=== PATIENT | female | born 1965 | race Two or more races ===

== ENCOUNTER 2017-07-10 23:51 | Emergency (ER) | payer BC ==
[2017-07-11] MEDS ORDERED: RX INFO: IV CONTRAST WAS GIVEN 1 EACH MISC MISCELLANE PRN (00:17)
--- NOTE | 2017-07-11 00:20 | ED ---
General Adult HPI - General Chief complaint: Shortness of Breath Stated complaint: DELLA Time Seen by Provider: 07/11/17 00:07 Source: patient, RN notes reviewed Mode of arrival: wheelchair Limitations: no limitations - History of Present Illness Initial comments: 52-year-old female presents with sudden onset dyspnea. Patient was laying in bed, she states that all of a sudden she cannot take a deep breath. She stood and had some improvement although did persist. At this time she did have some epigastric pain which she attributed to reflux. She has no known history of coronary artery disease. No history of DVT or PE. Denies any lower extremity pain or swelling. Denies any preceding symptoms, no fever chills, no cough. Patient's symptoms are nearly resolved at the time my evaluation, she does complain of some mild dizziness. No chest pain or dyspnea currently. Patient has remote history of tobacco use, quit many years ago. - Related Data Allergies Allergy/AdvReac Type Severity Reaction Status Date / Time sulfamethoxazole Allergy Rash/Hives Verified 07/10/17 23:59 [From Bactrim] trimethoprim [From Bactrim] Allergy Rash/Hives Verified 07/10/17 23:59 Review of Systems ROS Statement: Those systems with pertinent positive or pertinent negative responses have been documented in the HPI. ROS Other: All systems not noted in ROS Statement are negative. Past Medical History Past Medical History: No Reported History History of Any Multi-Drug Resistant Organisms: None Reported Past Surgical History: Uterine Ablation Past Psychological History: No Psychological Hx Reported Smoking Status: Former smoker Past Alcohol Use History: Occasional Past Drug Use History: None Reported General Exam Limitations: no limitations General appearance: alert, in no apparent distress Head exam: Present: atraumatic, normocephalic Eye exam: Present: normal appearance, PERRL, EOMI ENT exam: Present: normal exam Neck exam: Present: normal inspection. Absent: tenderness, meningismus Respiratory exam: Present: normal lung sounds bilaterally. Absent: respiratory distress, wheezes Cardiovascular Exam: Present: regular rate, normal rhythm GI/Abdominal exam: Present: soft. Absent: distended, tenderness Extremities exam: Present: normal inspection, normal capillary refill. Absent: pedal edema Back exam: Present: normal inspection, full ROM Neurological exam: Present: alert, oriented X3, CN II-XII intact. Absent: motor sensory deficit Psychiatric exam: Present: normal affect, normal mood. Absent: anxious Skin exam: Present: warm, dry, intact. Absent: cyanosis, diaphoretic Course Vital Signs 07/10/17 23:55 Temperature 97.5 F L Pulse Rate 90 Respiratory 16 Rate Blood Pressure 154/80 O2 Sat by Pulse 100 Oximetry EKG Findings - EKG Comments: EKG Findings:: EKG normal sinus rhythm, ventricular rate 90 AL interval 146, QRS duration 76, QTC 435, no definitive signs of ischemia, no ST segment elevation Medical Decision Making - Medical Decision Making 52-year-old female presenting with sudden onset dyspnea and epigastric pain. Symptoms are resolving at the time my evaluation. EKG is no definitive signs of ischemia. There is concern for pulmonary embolism given the sudden onset of her symptoms, CT angiography is obtained this is negative for PE. Chest x-ray negative for focal pneumonia or pneumothorax. No acute findings. CBC within normal limits, electrolytes normal, initial troponin is negative. Patient does have family history of coronary artery disease, she has significant tobacco exposure. She will be placed in observation for serial cardiac enzymes. Chest pain rule out. - Lab Data Result diagrams: 07/11/17 00:20 07/11/17 00:20 Lab Results 07/11/17 07/11/17 07/11/17 Range/Units 00:20 00:20 00:20 WBC 6.2 (3.8-10.6) k/uL RBC 4.65 (3.80-5.40) m/uL Hgb 14.1 (11.4-16.0) gm/dL Hct 41.0 (34.0-46.0) % MCV 88.3 (80.0-100.0) fL MCH 30.4 (25.0-35.0) pg MCHC 34.4 (31.0-37.0) g/dL RDW 12.2 (11.5-15.5) % Plt Count 287 (150-450) k/uL Neutrophils % 43 % Lymphocytes % 46 % Monocytes % 6 % Eosinophils % 3 % Basophils % 1 % Neutrophils # 2.6 (1.3-7.7) k/uL Lymphocytes # 2.8 (1.0-4.8) k/uL Monocytes # 0.4 (0-1.0) k/uL Eosinophils # 0.2 (0-0.7) k/uL Basophils # 0.0 (0-0.2) k/uL PT (9.0-12.0) sec INR (<1.2) APTT (22.0-30.0) sec Sodium 143 (137-145) mmol/L Potassium 4.2 (3.5-5.1) mmol/L Chloride 104 (98-107) mmol/L Carbon Dioxide 28 (22-30) mmol/L Anion Gap 11 mmol/L BUN 20 H (7-17) mg/dL Creatinine 0.70 (0.52-1.04) mg/dL Est GFR (CKD-EPI)AfAm >90 (>60 ml/min/1.73 sqM) Est GFR (CKD-EPI)NonAf >90 (>60 ml/min/1.73 sqM) Glucose 92 (74-99) mg/dL Calcium 10.0 (8.4-10.2) mg/dL Magnesium 2.0 (1.6-2.3) mg/dL Total Bilirubin 0.3 (0.2-1.3) mg/dL AST 24 (14-36) U/L ALT 22 (9-52) U/L Alkaline Phosphatase 59 (38-126) U/L Total Creatine Kinase 46 (30-135) U/L CK-MB (CK-2) 0.4 (0.0-2.4) ng/mL CK-MB (CK-2) Rel Index 0.9 Troponin I <0.012 (0.000-0.034) ng/mL NT-Pro-B Natriuret Pep pg/mL Total Protein 7.3 (6.3-8.2) g/dL Albumin 4.5 (3.5-5.0) g/dL Lipase 197 (23-300) U/L 07/11/17 07/11/17 Range/Units 00:20 00:20 WBC (3.8-10.6) k/uL RBC (3.80-5.40) m/uL Hgb (11.4-16.0) gm/dL Hct (34.0-46.0) % MCV (80.0-100.0) fL MCH (25.0-35.0) pg MCHC (31.0-37.0) g/dL RDW (11.5-15.5) % Plt Count (150-450) k/uL Neutrophils % % Lymphocytes % % Monocytes % % Eosinophils % % Basophils % % Neutrophils # (1.3-7.7) k/uL Lymphocytes # (1.0-4.8) k/uL Monocytes # (0-1.0) k/uL Eosinophils # (0-0.7) k/uL Basophils # (0-0.2) k/uL PT 9.6 (9.0-12.0) sec INR 1.0 (<1.2) APTT 23.3 (22.0-30.0) sec Sodium (137-145) mmol/L Potassium (3.5-5.1) mmol/L Chloride (98-107) mmol/L Carbon Dioxide (22-30) mmol/L Anion Gap mmol/L BUN (7-17) mg/dL Creatinine (0.52-1.04) mg/dL Est GFR (CKD-EPI)AfAm (>60 ml/min/1.73 sqM) Est GFR (CKD-EPI)NonAf (>60 ml/min/1.73 sqM) Glucose (74-99) mg/dL Calcium (8.4-10.2) mg/dL Magnesium (1.6-2.3) mg/dL Total Bilirubin (0.2-1.3) mg/dL AST (14-36) U/L ALT (9-52) U/L Alkaline Phosphatase (38-126) U/L Total Creatine Kinase (30-135) U/L CK-MB (CK-2) (0.0-2.4) ng/mL CK-MB (CK-2) Rel Index Troponin I (0.000-0.034) ng/mL NT-Pro-B Natriuret Pep 75 pg/mL Total Protein (6.3-8.2) g/dL Albumin (3.5-5.0) g/dL Lipase (23-300) U/L Disposition Clinical Impression: Chest pain Disposition: ADMITTED IP TO THIS [facility] Condition: Stable Referrals: None,Stated [Primary Care Provider] - 1-2 days Decision to Admit Reason: Admit from EC Decision Date: 07/11/17 Decision Time: 01:41
[2017-07-11 00:37] LABS: Basophils % (A) 1 %; Eosinophils # (A) 0.2 k/uL (0-0.7); Eosinophils % (A) 3 %; HGB 14.1 gm/dL (11.4-16.0); Lymphocytes # (A) 2.8 k/uL (1.0-4.8); Lymphocytes % (A) 46 %; MCH 30.4 pg (25.0-35.0); MCHC 34.4 g/dL (31.0-37.0); MCV 88.3 fL (80.0-100.0); Mean Platelet Volume 6.4; Monocytes # (A) 0.4 k/uL (0-1.0); Monocytes % (A) 6 %; Neutrophils # (A) 2.6 k/uL (1.3-7.7); Neutrophils % (A) 43 %; Platelet Count 287 k/uL (150-450); RBC 4.65 m/uL (3.80-5.40); RDW 12.2 % (11.5-15.5); WBC 6.2 k/uL (3.8-10.6)
[2017-07-11 00:45] LABS: Partial Thromboplastin Time 23.3 sec (22.0-30.0); Prothrombin Time 9.6 sec (9.0-12.0)
[2017-07-11 00:46] LABS: ALT 22 U/L (9-52); AST 24 U/L (14-36); Albumin 4.5 g/dL (3.5-5.0); Alkaline Phosphatase 59 U/L (38-126); Anion Gap 11 mmol/L; Blood Urea Nitrogen 20 mg/dL (7-17); Carbon Dioxide 28 mmol/L (22-30); Chloride 104 mmol/L (98-107); Glucose 92 mg/dL (74-99); Lipase 197 U/L (23-300); Potassium 4.2 mmol/L (3.5-5.1); Sodium 143 mmol/L (137-145); Total Bilirubin 0.3 mg/dL (0.2-1.3); Total Protein 7.3 g/dL (6.3-8.2)
--- NOTE | 2017-07-11 00:47 | XR ---
EXAMINATION TYPE: XR chest 2V DATE OF EXAM: 07/11/2017 COMPARISON: NONE HISTORY: Difficulty breathing TECHNIQUE: Frontal and lateral views of the chest are obtained. FINDINGS: Heart and mediastinum are normal. Lungs are clear. Diaphragm is normal. Bony thorax appear s normal. IMPRESSION: Normal chest.
--- NOTE | 2017-07-11 01:12 | CT ---
EXAMINATION TYPE: CT angio chest DATE OF EXAM: 07/11/2017 12:52 AM COMPARISON: NONE HISTORY: R/O PE, DELLA CT DLP: 146.00 mGycm Automated exposure control for dose reduction was used. CONTRAST: CTA scan of the thorax is performed with IV Contrast, patient injected with 70 mL of Omnipaque 350, p ulmonary embolism protocol. There are 3-D post processed images.. FINDINGS: There is some mild pleural thickening and nodular infiltrate at the lung apices. There is mild pulmon aj emphysema. There is no pleural effusion. Heart size is normal. There is no pericardial effusion. There is minimal linear density at the posterior lung bases. There is normal contrast opacification o f the pulmonary arteries. There is no mediastinal adenopathy. There are no hilar masses. Thoracic aor ta has normal size. There is no sign of aneurysm or dissection. Bony thorax is intact. IMPRESSION: PULMONARY EMPHYSEMA. PLEURAL AND PULMONARY SCARRING AT THE LUNG APICES. MINIMAL SUBSEGMENTAL ATELECTA SIS AT THE LUNG BASES. NO EVIDENCE OF PULMONARY EMBOLISM.
[2017-07-11 01:13] LABS: Creatine Kinase 46 U/L (30-135)
[2017-07-11] MEDS ORDERED: ASPIRIN 325 MG TAB PO STA (01:16)
[2017-07-11 01:33] LABS: Creatine Kinase MB 0.4 ng/mL (0.0-2.4); Troponin I <0.012 ng/mL (0.000-0.034)
[2017-07-11] MEDS ORDERED: NALOXONE 0.4 MG/ML 1 ML VIAL IV PRN (01:47)
[2017-07-11] MEDS ORDERED: ONDANSETRON 4 MG/2 ML VIAL IVP PRN (01:47)
[2017-07-11] MEDS ORDERED: HYDROcodone/APAP 5-325MG 1 EACH TAB PO PRN (02:34)
[2017-07-11] MEDS ORDERED: ACETAMINOPHEN TAB 325 MG TAB PO PRN (02:34)
[2017-07-11] MEDS ORDERED: CALCIUM CARBONATE 500 MG CHEWABLE PO PRN (02:34)
[2017-07-11] MEDS ORDERED: NITROGLYCERIN SL TABS 0.4 MG TAB SUBLINGUAL PRN (02:34)
--- NOTE | 2017-07-11 02:54 | P.HPIM ---
History of Present Illness H&P Date: 07/11/17 Chief Complaint: dyspnea Patient is a 52-year-old female with no significant past medical history who presented to the emergency department with complaints of chest pain. In the emergency department she underwent an extensive evaluation. On presentation she was slightly hypertensive with a blood pressure 154/80. Laboratory analysis was unremarkable. Chest x-ray was negative. CTA of the chest was negative. EKG demonstrated normal sinus rhythm without significant ST -T wave changes. Troponins were negative. She was admitted under observation for chest pain rule out. Patient seen and examined in the emergency department. She states that she was sitting in bed propped up on pillows when she had sudden onset shortness of breath. It was associated with an odd feeling in the left side of her chest. She states it felt like she could not take a deep breath in a like a pressure valve had been opened. She denies an overt pain but states it just felt like she couldn't breathe. She did feel slightly nauseous and though she may have slight indigestion. She does not have any wheezing. She did not have any numbness, tingling, or diaphoresis. She denies any palpitations. At that point in time she did have just a minute or 2 of dizziness. She became concerned of possible heart attack so she drove herself to the emergency department. While walking in to the emergency department she became dizzy and felt as though she was going to pass out. This resolved after sitting back down. Her mother has history of a two-vessel bypass in her early 60s. She does not take any aspirin on a daily basis. She had not had any recent changes in medication or started any new teyc-bwd-[id number] medications. She has not ate or drank anything unusual. She has not been struggling with indigestion. She does still have a gallbladder. She has not seen a primary care physician in several years. She has never seen a flap lining binder. She states she did have 2 days of chest pain several years ago and her PCP prescribed her some nitro which she never used. She has never had a stress test in the past. She has a history of tobacco abuse quitting in approximately 2011 but then did use of e- cigarettes for several years and still uses nicotine gum. Review of Systems General: no fever/chills, no rigors, no weight loss/weight gain, no unusual fatigue Eyes: no noticeable visual changes, no loss of vision ENT: no rhinorrhea, no congestion, no sore throat Cardiovascular: + chest pain, no palpitations, + preyncope, No syncope, no edema Pulmonary: + shortness of breath, no wheezing, no cough Abdominal: no abdominal pain, no constipation, no diarrhea, no vomiting, no nausea Genitourinary: no dysuria, no urinary frequency, no unusual discharge/odor Neuro: no unusual paresthesias, no unusual paresis/paralysis, no headache Dermatologic: no unusual rashes, no unusual lesions, no unusual changes in nails Hematologic: no hemoptysis, no hematuria, no melena/hematochezia Psychiatric: no changes in mood or behaviors, no changes in sleep pattern Past Medical History Past Medical History: No Reported History History of Any Multi-Drug Resistant Organisms: None Reported Past Surgical History: Uterine Ablation Past Psychological History: No Psychological Hx Reported Smoking Status: Former smoker Past Alcohol Use History: Occasional Past Drug Use History: None Reported Additional Drug Use History / Comment(s): still uses nicotine lozenges Additional History: lives alone, works at the [employer] - Past Family History Mother Family Medical History: Coronary Artery Disease (CAD) Additional Family Medical History / Comment(s): double bypass in her early 60s Medications and Allergies Allergies Allergy/AdvReac Type Severity Reaction Status Date / Time sulfamethoxazole Allergy Rash/Hives Verified 07/10/17 23:59 [From Bactrim] trimethoprim [From Bactrim] Allergy Rash/Hives Verified 07/10/17 23:59 Physical Exam Osteopathic Statement: *. No significant issues noted on an osteopathic structural exam other than those noted in the History and Physical/Consult. Vitals: Vital Signs Temp Pulse Resp BP Pulse Ox 07/10/17 23:55 97.5 F L 90 16 154/80 100 Intake and Output 07/10/17 07/10/17 07/11/17 14:59 22:59 06:59 Other: Weight 56.699 kg General: non toxic, no distress, appears at stated age, normal weight Derm: Multiple skin tag, no unusual rashes/lesions no unusual ecchymoses, warm, dry Head: atraumatic, normocephalic, symmetric Eyes: EOMI, no lid lag, anicteric sclera, pupils equal round reactive to light ENT: Nose and ears atraumatic, no thrush, no pharyngeal erythema Neck: No thyromegaly, no cervical lymphadenopathy, trachea midline, supple Mouth: no lip lesion, mucus membranes moist Cardiovascular: S1S2 reg, no murmur, positive posterior tibial pulse bilateral, no edema, capillary refill less than 2 seconds, chest discomfort reproducible to palpation Lungs: CTA bilateral, no rhonchi, no rales , no accessory muscle use Abdominal: soft, nontender to palpation, no guarding, no appreciable organomegaly, normal bowel sounds Ext: no gross muscle atrophy, muscle strength 5 out of 5 in all 4 extremities grossly, no contractures, Neuro: CN II-XI grossly intact, light touch intact all 4 extremities, finger to nose within normal limits, Psych: Alert, oriented, appropriate affect Results CBC & Chem 7: 07/11/17 00:20 07/11/17 00:20 Labs: Abnormal Lab Results - Last 24 Hours (Table) 07/11/17 Range/Units 00:20 BUN 20 H (7-17) mg/dL Comments: EKG is reviewed by myself reveals normal sinus rhythm at a rate of 90 QT of 435 , no significant ST-T wave changes, normal axis Chest x-ray: report reviewed Thrombosis Risk Factor Assmnt - DVT/VTE Prophylaxis DVT/VTE Prophylaxis: Low risk, early ambulation encouraged - Choose All That Apply Each Factor Represents 1 point: Age 41-60 years Thrombosis Risk Factor Assessment Total Risk Factor Score: 1 Thrombosis Risk Factor Assessment Level: Low Risk Assessment and Plan Assessment: Dyspnea, concern for anginal equivalents -Cycle troponins -Telemetry -Aspirin -Check lipid profile -Cardiology consult probable stress test with family history -Chest CT negative for pulmonary emboli -If stress test negative would consider further outpatient evaluation for GERD, gallbladder disease Elevated blood pressure 1 -Follow blood pressures -Patient has not seen a primary care physician in the past but is interested in seeing Dr. Montenegro her information has been added to discharge plan. Surrogate decision-maker: James Diego CODE STATUS: Full DVT prophylaxis: Early ambulation Discussed with: Patient, ED physician Anticipated discharge: [address]: Home A total of 45 minutes was spent on the care of this complex patient more than 50 % of the time was spent in counseling and care coordination.
[2017-07-11 07:30] LABS: Cholesterol 177 mg/dL (<200); HDL Cholesterol 71 mg/dL (40-60); LDL Cholesterol,Calculated 97 mg/dL (0-99); Triglycerides 44 mg/dL (<150)
[2017-07-11 07:43] LABS: Creatine Kinase 42 U/L (30-135)
[2017-07-11 07:54] LABS: Creatine Kinase MB 0.4 ng/mL (0.0-2.4); Troponin I <0.012 ng/mL (0.000-0.034)
[2017-07-11] MEDS ORDERED: ASPIRIN 81 MG PO SCH (09:00)
--- NOTE | 2017-07-11 11:35 | P.CRDCN ---
History of Present Illness Consult date: 07/11/17 Consult reason: chest pain History of present illness: Mrs. Woo is a pleasant 52-year-old female past medical history significant for chronic tobacco use. She quit smoking just last year and still uses the lozenges. She denies personal history of CAD but her mother underwent bypass grafting at the age of 60. We have been asked to see her in consultation for complaints of chest pain. She states last night around 2300 she was sitting up reading in bed when she felt a tight squeezing sensation to the left precordial region. This was associated with shortness of breath. There was no specific aggravating factor she can recall. The pain and shortness of breath were persisting with no alleviating factors. After about 60 minutes she decided to present to the hospital for evaluation. Upon arriving her the pain and shortness of breath subsided on its own but then she became acutely dizzy. This also subsided on its own after just a few minutes. She denies associated palpitations, nausea, vomiting or diaphoresis. The pain did not radiate anywhere remained localized to the left anterior chest wall. EKG on arrival reveals sinus mechanism with non-specific ST changes not suggestive of an acute event. Chest x-ray is negative for acute cardiopulmonary process. CT angios was performed to rule out pulmonary embolism which was negative. Although revealed evidence of pulmonary emphysema with scarring around the apices. Laboratory data reviewed, cardiac enzymes negative 2. She takes no daily medications. Review of Systems At the time of my exam: CONSTITUTIONAL: Denies fever. Denies chills. EYES: Denies blurred vision. Denies vision changes. Denies eye pain. EARS, NOSE, MOUTH & THROAT: Denies headache. Denies sore throat. Denies ear pain. CARDIOVASCULAR: Denies chest pain. Denies shortness of breath. Denies orthopnea. Denies PND. Denies palpitations. RESPIRATORY: Denies cough. GASTROINTESTINAL: Denies abdominal pain. Denies diarrhea. Denies constipation. Denies nausea. Denies vomiting. MUSCULOSKELETAL: Denies myalgias. INTEGUMENTARY: Denies pruitis. Denies rash. NEUROLOGIC: Denies numbness. Denies tingling. Denies weakness. PSYCHIATRIC: Denies anxiety. Denies depression. ENDOCRINE: Denies fatigue. Denies weight change. Denies polydipsia. Denies polyurina. GENITOURINARY: Denies burning, hematuria or urgency with micturation. HEMATOLOGIC: Denies history of anemia. Denies bleeding. Past Medical History Past Medical History: No Reported History History of Any Multi-Drug Resistant Organisms: None Reported Past Surgical History: Uterine Ablation Past Psychological History: No Psychological Hx Reported Smoking Status: Former smoker Past Alcohol Use History: Occasional Past Drug Use History: None Reported Additional Drug Use History / Comment(s): still uses nicotine lozenges - Past Family History Mother Family Medical History: Coronary Artery Disease (CAD) Additional Family Medical History / Comment(s): double bypass in her early 60s Medications and Allergies Home Medications Medication Instructions Recorded Confirmed Type No Known Home Medications [No 07/11/17 07/11/17 History Known Home Medications] Allergies Allergy/AdvReac Type Severity Reaction Status Date / Time sulfamethoxazole Allergy Rash/Hives Verified 07/11/17 07:11 [From Bactrim] trimethoprim [From Bactrim] Allergy Rash/Hives Verified 07/11/17 07:11 Physical Exam Vitals: Vital Signs Temp Pulse Resp BP Pulse Ox 07/11/17 07:32 98 07/11/17 07:20 123/79 99 07/11/17 06:27 69 17 128/77 94 L 07/11/17 05:13 98.2 F 76 16 132/83 98 07/11/17 03:41 74 17 136/78 98 07/11/17 02:13 72 16 128/64 99 07/10/17 23:55 97.5 F L 90 16 154/80 100 Intake and Output 07/10/17 07/11/17 07/11/17 22:59 06:59 14:59 Other: Weight 56.699 kg GENERAL: This is a 52-year-old female in no apparent distress at the time of my examination. HEENT: Head is atraumatic, normocephalic. Pupils are equal, round. Sclerae anicteric. Conjunctivae are clear. Mucous membranes of the mouth are moist. Neck is supple. There is no jugular venous distention. No carotid bruit is heard. LUNGS: Clear to auscultation no wheezes, rales or rhonchi. No chest wall tenderness is noted on palpation or with deep breathing. HEART: Regular rate and rhythm without murmurs, rubs or gallops. S1 and S2 heard. ABDOMEN: Soft, nontender. Bowel sounds are heard. No organomegaly noted. EXTREMITIES: No evidence of peripheral edema and no calf tenderness noted. VASCULAR: Radial and dorsalis pedis pulses palpated, no evidence of clubbing. NEUROLOGIC: Patient is awake, alert and oriented x3. Results 07/11/17 00:20 07/11/17 00:20 Cardiac Enzymes 07/11/17 07/11/17 07/11/17 Range/Units 00:20 00:20 06:45 AST 24 (14-36) U/L CK-MB (CK-2) 0.4 0.4 (0.0-2.4) ng/mL Troponin I <0.012 <0.012 (0.000-0.034) ng/mL Coagulation 07/11/17 Range/Units 00:20 PT 9.6 (9.0-12.0) sec APTT 23.3 (22.0-30.0) sec Lipids 07/11/17 Range/Units 06:45 Triglycerides 44 (<150) mg/dL Cholesterol 177 (<200) mg/dL HDL Cholesterol 71 H (40-60) mg/dL CBC 07/11/17 Range/Units 00:20 WBC 6.2 (3.8-10.6) k/uL RBC 4.65 (3.80-5.40) m/uL Hgb 14.1 (11.4-16.0) gm/dL Hct 41.0 (34.0-46.0) % Plt Count 287 (150-450) k/uL Comprehensive Metabolic Panel 07/11/17 Range/Units 00:20 Sodium 143 (137-145) mmol/L Potassium 4.2 (3.5-5.1) mmol/L Chloride 104 (98-107) mmol/L Carbon Dioxide 28 (22-30) mmol/L BUN 20 H (7-17) mg/dL Creatinine 0.70 (0.52-1.04) mg/dL Glucose 92 (74-99) mg/dL Calcium 10.0 (8.4-10.2) mg/dL AST 24 (14-36) U/L ALT 22 (9-52) U/L Alkaline Phosphatase 59 (38-126) U/L Total Protein 7.3 (6.3-8.2) g/dL Albumin 4.5 (3.5-5.0) g/dL Current Medications Generic Name Dose Route Start Last Admin Trade Name Freq PRN Reason Stop Dose Admin Acetaminophen 650 mg 07/11/17 02:34 Tylenol Tab PO Q6HR PRN Fever and/ or Pain Hydrocodone Bitart/Acetaminophen 1 each 07/11/17 02:34 [place] 5-325 PO Q6HR PRN Pain Aspirin 81 mg 07/11/17 09:00 Aspirin PO DAILY JENIFFER Calcium Carbonate/Glycine 500 mg 07/11/17 02:34 Tums PO TID PRN Heartburn Miscellaneous Information 1 each 07/11/17 00:17 07/11/17 00:31 Rx Info: Iv Contrast Was Given MISCELLANE 07/13/17 00:17 1 each DAILY PRN Administration Per Protocol Naloxone HCl 0.2 mg 07/11/17 01:47 Narcan IV Q2M PRN Opioid Reversal Nitroglycerin 0.4 mg 07/11/17 02:34 Nitrostat SUBLINGUAL Q5M PRN Chest Pain Ondansetron HCl 4 mg 07/11/17 01:47 Zofran IVP Q8HR PRN Nausea And Vomiting Intake and Output 07/10/17 07/11/17 07/11/17 22:59 06:59 14:59 Other: Weight 56.699 kg 07/11/17 00:20 07/11/17 00:20 Assessment and Plan Assessment: ASSESSMENT 1. Chest pain, atypical 2. Former tobacco use 3. Family history of heart disease PLAN Obtain 2D echocardiogram to assess cardiac structure and function. Perform stress echocardiogram to assess for stress-induced cardiac ischemia. Further recommendations will be based upon diagnostic tests findings. If the above testing is negative she is stable from a cardiac perspective. Thank you kindly for this consultation. Nurse Practitioner note has been reviewed, I agree with a documented findings and plan of care. Patient was seen and examined.
[2017-07-11 13:06] VITALS: TEMP 97.4
--- NOTE | 2017-07-11 13:23 | P.DS ---
Providers Date of admission: 07/11/17 01:47 Expected date of discharge: 07/11/17 Attending physician: Jeniffer Riggins DO Consults: 07/11/17 02:33 Consult Physician Routine Consulting Provider: Francisco Milton Consult Reason/Comments: chest pain Do you want consulting provider notified?: Yes Primary care physician: Stated None Hospital Course: 52-year-old female with no significant past medical history who presented to the emergency department with complaints of chest pain. In the emergency department she underwent an extensive evaluation. On presentation she was slightly hypertensive with a blood pressure 154/80. Laboratory analysis was unremarkable. Chest x-ray was negative. CTA of the chest was negative. EKG demonstrated normal sinus rhythm without significant ST-T wave changes. Troponins were negative. She was admitted under observation for chest pain rule out. Patient seen and examined in the emergency department. She states that she was sitting in bed propped up on pillows when she had sudden onset shortness of breath. It was associated with an odd feeling in the left side of her chest. She states it felt like she could not take a deep breath in a like a pressure valve had been opened. She denies an overt pain but states it just felt like she couldn't breathe. She did feel slightly nauseous and though she may have slight indigestion. She does not have any wheezing. She did not have any numbness, tingling, or diaphoresis. She denies any palpitations. At that point in time she did have just a minute or 2 of dizziness. She became concerned of possible heart attack so she drove herself to the emergency department. While walking in to the emergency department she became dizzy and felt as though she was going to pass out. This resolved after sitting back down. Her mother has history of a two-vessel bypass in her early 60s. She does not take any aspirin on a daily basis. She had not had any recent changes in medication or started any new [id number] medications. She has not ate or drank anything unusual. She has not been struggling with indigestion. She does still have a gallbladder. She has not seen a primary care physician in several years. 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 She states she did have 2 days of chest pain several years ago and her PCP prescribed her some nitro which she never used. She has never had a stress test in the past. She has a history of tobacco abuse quitting in approximately 2011 but then did use of e- cigarettes for several years and still uses nicotine gum. Patient was admitted to the hospital for observation, she was monitored on telemetry. Troponins were cycled and they were within normal limits. She underwent a dobutamine stress imaging today and it came back within normal limits. She was cleared by cardiology for discharge. Patient will be discharged home in a stable condition. Patient Condition at Discharge: Stable Plan - Discharge Summary Discharge Rx Participant: No Follow up Appointment(s)/Referral(s): Ly Montenegro MD [STAFF PHYSICIAN] - 1-2 Days None,Stated [Primary Care Provider] - 1-2 days
--- NOTE | 2017-07-11 13:32 | ECHOF ---
Referral Reason:cp MEASUREMENTS -------- HEIGHT: 160.0 cm WEIGHT: 56.7 kg BP: 123/79 RVIDd: 2.6 cm (< 3.3) IVSd: 0.8 cm (0.6 - 1.1) LVIDd: 4.2 cm (3.9 - 5.3) LVPWd: 0.7 cm (0.6 - 1.1) IVSs: 1.2 cm LVIDs: 2.4 cm LVPWs: 1.5 cm LAESV Index (A-L): 19.88 ml/m Ao Diam: 3.2 cm (2.0 - 3.7) AV Cusp: 2.0 cm (1.5 - 2.6) LA Diam: 2.5 cm (2.7 - 3.8) MV EXCURSION: 16.399 mm (> 18.000) MV EF SLOPE: 130 mm/s (70 - 150) EPSS: 0.4 cm MV E Henrik: 0.83 m/s MV DecT: 221 ms MV A Henrik: 0.56 m/s MV E/A Ratio: 1.48 RAP: 5.00 mmHg RVSP: 7.09 mmHg FINDINGS -------- Sinus rhythm. This was a technically good study. The left ventricular size is normal. There is mild concentric left ventricular hypertrophy. Overa ll left ventricular systolic function is normal with, an EF between 55 - 60 %. The right ventricle is normal in size and function. The left atrium is normal in size. The right atrium is normal in size. The aortic valve is trileaflet, and appears structurally normal. No aortic stenosis or regurgitation. The mitral valve leaflets are mildly thickened. Mild mitral regurgitation is present. Mild tricuspid regurgitation present. The right ventricular systolic pressure, as measured by Doppl er, is 7.09mmHg. Pulmonic valve appears structurally normal. The aortic root size is normal. Normal inferior vena cava with normal inspiratory collapse consistent with estimated right atrial pre ssure of 5 mmHg. The pericardium is normal. CONCLUSIONS -------- 1. Sinus rhythm. 2. This was a technically good study. 3. The left ventricular size is normal. 4. There is mild concentric left ventricular hypertrophy. 5. Overall left ventricular systolic function is normal with, an EF between 55 - 60 %. 6. The right ventricle is normal in size and function. 7. The left atrium is normal in size. 8. The right atrium is normal in size. 9. The aortic valve is trileaflet, and appears structurally normal. No aortic stenosis or regurgitati on. 10. The mitral valve leaflets are mildly thickened. 11. Mild mitral regurgitation is present. 12. Mild tricuspid regurgitation present. 13. The right ventricular systolic pressure, as measured by Doppler, is 7.09mmHg. 14. Pulmonic valve appears structurally normal. 15. The aortic root size is normal. 16. Normal inferior vena cava with normal inspiratory collapse consistent with estimated right atrial pressure of 5 mmHg. 17. The pericardium is normal. DIRECTOR [employer]: Whitney Perez RDCS
[2017-07-11 13:59] LABS: Creatine Kinase 42 U/L (30-135)
[2017-07-11 14:12] LABS: Creatine Kinase MB 0.3 ng/mL (0.0-2.4); Troponin I <0.012 ng/mL (0.000-0.034)
[2017-07-11 14:52] VITALS: BP 133/87; PULSE 82; RESP 18
--- NOTE | 2017-07-11 16:13 | ECHOS ---
STRESS ECHOCARDIOGRAM INDICATIONS: DELLA MEDICATIONS: None. BASELINE HEART RATE: 75 BASELINE BLOOD PRESSURE: 139/101 MAXIMUM HEART RATE: 154 MAXIMUM BLOOD PRESSURE: 167/94 85% MPHR: 141 100% MPHR: 166 METS: 7.1 MAXIMUM STAGE REACHED: 2 TOTAL EXERCISE TIME: 6:00 CLINICAL INFORMATION: Baseline EKG revealed a normal sinus rhythm without significant ST-T changes. Patient walked on standard Fili protocol for 6 minutes and achieved a maximal heart rate of 154 beats per minute, which is more than 85% of predicted maximum. She developed fatigue and shortness of breath but did not have any angina or arrhythmia. EKG did not reveal any ST-segment changes to indicate ischemia. This is a negative stress test with fair exercise capacity. Baseline echo images revealed normal wall motion and wall thickening of all segments. At peak exercise there was good augmentation of left ventricular wall motion and wall thickening of all segments, suggesting that there is no evidence of stress-induced ischemia on this study. IMPRESSION: 1. By EKG criteria this is a negative stress test with fair exercise capacity. 2. Normal stress echocardiogram. MMODL / IJN: [id number] /
== END 2017-07-11 14:51 | disposition home or self-care (01) ==
LOC: EC 23:51 → 3OBS 07-11 01:47 → UNDOADMOB 07-11 01:47 → EC 07-11 14:51 → UNDODISOB 07-11 14:52
DX: R07.9 Chest pain, unspecified (principal); R10.13 Epigastric pain; R06.02 Shortness of breath; R42 Dizziness and giddiness; Z82.49 Family history of ischemic heart disease and other diseases of the circulatory system; Z87.891 Personal history of nicotine dependence; Z88.2 Allergy status to sulfonamides
CPT/HCPCS: 36415; 93005; 93017; 93306; 93350; 83880; 80061; 80053; 82550; 82553; 83690; 83735; 84484; 85025; 85610; 85730; 71046; 71275; 99285; Q9967

== ENCOUNTER → 2021-10-14 | Outpatient (CLI) | payer BC ==
--- NOTE | 2021-10-15 08:22 | MM ---
Reason for Exam: Clinical finding. Indicated Problems: Pain of the left side (Global) for 1 Month(s) : around 3-7 oclock and nipple area. Patient History: Menarche at age 11. First Full-Term at age 18. Postmenopausal. Risk Values: Mariella 5 year model risk: 1.2%. NCI Lifetime model risk: 6.9%. Tissue Density: The breast tissue is heterogeneously dense. This may lower the sensitivity of mammography. Findings: Analyzed By CAD. Mammogram No suspicious mass or microcalcifications noted.. Technique: Method: Targeted. Findings: The lower section of the breast of the left breast, the axilla of the left breast and the retroareolar of the left breast were scanned. Scanned Left 3:00-8:00 at area of vague pain and no focal lesion or abnormality was seen. Overall Assessment: Negative, BI-RAD 1 Assessment: MG 3D diag mammo w/cad NURYS - Bilateral: Incomplete: need additional imaging evaluation, BI-RAD 0 - Left. US breast limited LT - Bilateral: Negative, BI-RAD 1 - Left. Management: Screening Mammogram of both breasts in 1 year. A clinical breast exam by your physician is recommended on an annual basis and results should be correlated with mammographic findings. Results were given to the patient verbally at the time of exam. Electronically signed and approved by: Ra Newby M.D. Radiologis
== END | disposition home or self-care (01) ==
LOC: RADMAMWWP 12:51
PROVIDERS: ATTEND Family Medicine
DX: N64.4 Mastodynia (principal)
CPT/HCPCS: 77062; 77066

== ENCOUNTER → 2021-10-14 | Outpatient (CLI) | payer BC ==
--- NOTE | 2021-10-14 19:56 | CTL ---
EXAMINATION TYPE: CT Low Dose Lung DATE OF EXAM ORDERED: 10/14/2021 HISTORY: Tobacco use. Lung cancer screening CT DLP: 50.[address] CTDI: 1.3 mGy Automated exposure control for dose reduction was used. SCREENING VISIT: Baseline COMPARISON: CT dated 07/11/2017 TECHNIQUE: Low dose computed tomography scan was performed through the chest at 1 mm thick sections a nd reconstructed images in multiple planes at 1 mm and [address] DIAGNOSTIC QUALITY: Satisfactory FINDINGS: LUNG NODULES: None.. LUNGS: COPD: Severity: Moderate Fibrosis: Severity: Thick bilateral apical pulmonary fibrotic changes and scarring, stable. Lymph nodes: No pathologically enlarged lymph nodes in the chest. Other findings: Bilateral basal linear pulmonary atelectasis. RIGHT PLEURAL SPACE: Effusion: None Calcification: None Thickening: None Pneumothorax: None LEFT PLEURAL SPACE: Effusion: None Calcification: None Thickening: None Pneumothorax: None HEART: Heart Size: Normal Coronary Calcification: None Pericardial Effusion: None OTHER FINDINGS: Upper abdomen: None Bony thorax: Degenerative changes of the midthoracic spine. Supraclavicular region: None Other: Scattered arterial atherosclerotic calcifications. IMPRESSION: No definite lung nodule or suspicious lesion. COPD changes and other incidental findings as described above. CT LUNG RAD AND CT CHEST RECOMMENDATION: Lung-Rad 1 Negative: Continue annual screening with LDCT in 12 months. S Modifier (other clinically significant findings): None
== END | disposition home or self-care (01) ==
LOC: RADCTMAIN 12:26
PROVIDERS: ATTEND Family Medicine
DX: Z12.2 Encounter for screening for malignant neoplasm of respiratory organs (principal)
CPT/HCPCS: 71271

== ENCOUNTER → 2024-05-24 | Outpatient (CLI) | payer BC ==
--- NOTE | 2024-05-24 21:39 | CTL ---
EXAMINATION TYPE: CT Low Dose Lung DATE OF EXAM: 05/24/2024 4:36 PM COMPARISON: 10/14/2021 SCREENING VISIT: Subsequent CT DIAGNOSTIC QUALITY: Satisfactory CLINICAL INDICATION: Female, 59 years old with history of Z12.2 ENCNTR SCREEN FOR MALIGNANT, Former s moker, quit in 2011. Hx of 1PPD x35yrs., Lung cancer screening, History of tobacco use. TECHNIQUE: Low dose computed tomography scan was performed through the chest at 1 mm thick sections a nd reconstructed images in the coronal plane at 1 mm thick sections. Contrast used: mL of , (none if empty) Oral contrast used: (none if empty) CT DLP: 55.7 mGycm, Automated exposure control for dose reduction was used. CT CTDI: 1.4 mGy, Automated exposure control for dose reduction was used. FINDINGS: LUNG NODULES: None. 1. Faint nodularity is not excluded in the periphery of the left lung, example image series 4 image 7 5. Lung scarring appears to be at the lung apices bilaterally and appears stable from comparison. Some s table linear opacities at the lung bases may be some scarring. LUNGS: COPD: Severity: Mild Fibrosis: Severity: None Lymph nodes: None Other findings: None RIGHT PLEURAL SPACE: Effusion: None Calcification: None Thickening: None Pneumothorax: None LEFT PLEURAL SPACE: Effusion: None Calcification: None Thickening: None Pneumothorax: None HEART: Ascending thoracic aorta at the level the main pulmonary artery measures 3.1 cm. The main pulmonary artery at the bifurcation measures 2.7 cm. Heart Size: Normal Coronary calcification: None Pericardial effusion: None OTHER FINDINGS: Upper abdomen: Normal Bony thorax: Normal Supraclavicular region: Normal IMPRESSION: 1. Minimal punctate nodularity in the periphery of the left upper lung field may be present previousl y. 2. No suspicious increasing size or number of nodularity evident. FOLLOW UP CT CHEST RECOMMENDATION: Follow-up low-dose CT chest one year CT LUNG RAD: Lung-Rad 2 Benign Appearance or Behavior [facility], Workstation: [facility], 05/24/2024 9:37 PM
--- NOTE | 2024-05-25 07:33 | MM ---
Reason for Exam: Screening (asymptomatic). Last mammogram was performed 2 year(s) and 7 month(s) ago. Patient History: Menarche at age 11. First Full-Term at age 18. Postmenopausal. Risk Values: Mariella 5 year model risk: 1.3%. NCI Lifetime model risk: 6.4%. Prior Study Comparison: 10/14/2021 Bilateral MG 3D diag mammo w/cad NURYS, [facility]. Tissue Density: The breasts are heterogeneously dense, which may obscure small masses. Findings: Analyzed By CAD. Right breast: There is no suspicious group of microcalcifications or new suspicious mass. Left breast: There is no suspicious group of microcalcifications or new suspicious mass. Overall Assessment: Negative, BI-RAD 1 Management: Screening Mammogram of both breasts in [address] [facility] will attempt to contact patient to return for supplemental views and ultrasound if indicated. Patient should continue monthly self-breast exams. A clinical breast exam by your physician is recommended on an annual basis. This exam should not preclude additional follow-up of suspicious palpable abnormalities. Note on Mariella scores and lifetime risk: 1. A Mariella score greater than 3% is considered moderate risk. If this is the case, consider specialist referral to assess eligibility for a risk reducing agent. 2. If overall lifetime risk for the development of breast cancer is 20% or higher, the patient may qualify for future screening with alternating mammogram and breast MRI. [facility], , 05/25/2024 7:29 AM. Electronically signed and approved by: Rene Overton DO
== END | disposition home or self-care (01) ==
LOC: RADMAMWWP 15:54
PROVIDERS: ATTEND Family Medicine
DX: Z12.31 Encounter for screening mammogram for malignant neoplasm of breast (principal); Z12.2 Encounter for screening for malignant neoplasm of respiratory organs; J44.9 Chronic obstructive pulmonary disease, unspecified; Z87.891 Personal history of nicotine dependence; R92.333 Mammographic heterogeneous density, bilateral breasts; Z78.0 Asymptomatic menopausal state
CPT/HCPCS: 71271; 77067

== ENCOUNTER → 2024-07-30 | Outpatient (CLI) | payer BC ==
--- NOTE | 2024-07-31 12:23 | CT ---
EXAMINATION TYPE: CT iac wo con DATE OF EXAM: 07/30/2024 10:02 AM COMPARISON: None. CLINICAL INDICATION: Female, 59 years old with history of H93.19 TINNITUS, UNSPECIFIED EAR, LEFT EAR HEARING LOSS TECHNIQUE: Contrast used: mL of , (none if empty) Oral contrast used: (none if empty) Axial images at 1 mm thick sections. Reconstructed images in the coronal and sagittal planes. FINDINGS: Mucosal thickening is through ethmoid air cells. There is mucosal thickening within the left frontal sinus. Nasal bones appear intact. Zygomatic arches are intact. Greater wings of the sphenoid are norm al Remaining paranasal sinuses and mastoid air cells are clear. Ostiomeatal units are patent. Semicircular canals are normal. Cochlea are normal. Incus and malleus have normal orientation. Can Dragger al auditory canals and middle ears are clear. Internal auditory canals appear normal without expansio n or erosion. Adnexa are clear. Study is without intravenous contrast. No cerebellar pontine angle masses are identified. IMPRESSION: 1. NO ACUTE ABNORMALITY TO ACCOUNT FOR LEFT-SIDED HEARING LOSS OR TINNITUS. [facility], , 07/31/2024 12:20 PM
== END | disposition home or self-care (01) ==
LOC: RADCTMAIN 09:40
PROVIDERS: ATTEND Otolaryngology
DX: H93.19 Tinnitus, unspecified ear (principal); H91.90 Unspecified hearing loss, unspecified ear
CPT/HCPCS: 70480